=== PATIENT | male | born 1945 | race Caucasian/White ===

== ENCOUNTER → 2016-08-27 | Outpatient (CLI) | payer MEDICARE ==
[~2016-08-27] MED LIST: ALLO300T74 PO; AMLO10TA57 PO; ASPI-557 PO; BISO1TAB38 PO; FEXO180T56 PO; FLUT16SP12 NS; HYDR-4246 PO; LOSA25TA9 PO; METF-200 PO; NAPR-561 PO; POLY17PO18 PO; [UNRECOGNIZED DRUG - CODE] PO; [UNRECOGNIZED DRUG - CODE] PO
--- NOTE | 2016-08-27 09:36 | DI ---
Indication: ITS.REASON: E04.2 MULTINODULAR THYROID PROCEDURE: US THYROID: Encounter: Subsequent Comparison: Thyroid ultrasound dated December 12, 2012 Technique: Grayscale and color Doppler sonographic imaging of the thyroid gland was performed. Findings: Right thyroid lobe appears stable with a small 7 to 8 mm isoechoic nodule in the midportion. No definite new nodules on the right or left thyroid lobe again shows a hypoechoic 2 x 1.8 x 2.1 cm nodule in the inferior portion which is grossly stable allowing for measurement variability. No definite new thyroid nodules. Thyroid isthmus is normal measuring 0.3 cm in diameter. Right thyroid lobe measures 3.3 x 1.1 x 1.4 cm. Left lobe measures 3.5 x 1.9 x 2.47 m. Impression: Stable appearance of the thyroid gland. .
== END ==
LOC: IMA 07:09
PROVIDERS: ATTEND Otolaryngology
DX: E04.2 Nontoxic multinodular goiter (principal)